=== PATIENT | female | born 1990 | race Caucasian/White ===

== ENCOUNTER 2018-02-27 09:58 | Day surgery (SDC) | payer OTHER ==
[~2018-02-27 09:58] MED LIST: Lactated Ringers 1,000 ML IV SCH; ceFAZolin 1 GM Vial IVPUSH ONE
[2018-02-27] MEDS ORDERED: Glycopyrrolate 0.2 MG/ML SDV IVPUSH ONE (09:59)
[2018-02-27] MEDS ORDERED: Propofol 200 MG/20 ML SDV IV ONE (09:59)
[2018-02-27] MEDS ORDERED: Ketorolac 30 MG/ML SDV IVPUSH ONE (09:59)
[2018-02-27] MEDS ORDERED: Midazolam 1 MG/ML 2 ML SDV IV ONE (09:59)
[2018-02-27] MEDS ORDERED: Succinylcholine 200 MG/10 ML MDV IV ONE (09:59)
[2018-02-27] MEDS ORDERED: HYDROmorphone 1 MG/ML Syringe IV ONE (09:59)
[2018-02-27] MEDS ORDERED: fentaNYL 100 MCG/2 ML SDV IV ONE ×2 (09:59)
[2018-02-27] MEDS ORDERED: Ondansetron 4 MG/2 ML SDV IV ONE (09:59)
[2018-02-27] MEDS ORDERED: Neostigmine Methylsulfate 10 MG/10 ML MDV IV ONE (09:59)
[2018-02-27] MEDS ORDERED: Rocuronium 50 MG/5 ML Vial IV ONE (09:59)
[2018-02-27] MEDS ORDERED: Morphine 2 MG/ML Syringe IVPUSH PRN (12:52)
[2018-02-27] MEDS ORDERED: Sodium Chloride 0.9% 10 ML Syringe FLUSH PRN (12:52)
--- NOTE | 2018-02-27 15:37 | OR ---
DATE OF OPERATION: 02/27/2018 PREOPERATIVE DIAGNOSIS: CHRONIC CHOLECYSTITIS AND CHOLELITHIASIS. POSTOPERATIVE DIAGNOSIS: CHRONIC CHOLECYSTITIS AND CHOLELITHIASIS. SURGEON: Gregorio Vegas MD PROCEDURE: LAPAROSCOPIC CHOLECYSTECTOMY. ANESTHESIA: General. ESTIMATED BLOOD LOSS: Minimum. SPECIMEN: Gallbladder and stones. FINDINGS: Multiple gallstones and normal appearing gallbladder. She does have a large 5 cm umbilical ventral hernia. No other abnormalities. There were no intra-abdominal adhesions. INDICATIONS: This 28-year-old female has symptomatic gallstone disease. DESCRIPTION OF PROCEDURE: After adequate preparation, an alternate access site was used in the right upper quadrant to place a trocar. The abdomen was then insufflated under direct vision. Other trocars were placed. The lower midline trocar had to be off to the side somewhat secondary to large what appears to be a recurrent umbilical hernia. There are no intra-abdominal contents in the hernia sac. The gallbladder was identified and elevated over the liver bed. The cystic triangle structure was dissected free, triply clipped and divided. The gallbladder was taken out the liver bed using cautery and blunt dissection. No spillage of bile or stones occurred. The gallbladder was taken out through the right mid clavicular port site. The abdomen was desufflated and the skin closed with Vicryl. BPB/MODL /[id number]
[2018-02-27] MEDS: Acetaminophen/oxyCODONE 325-5 MG Tab PO PRN ×2 (17:32→21:47)
[2018-02-27] MEDS: Ondansetron 4 MG/2 ML SDV IVPUSH PRN (21:45)
[2018-02-28] MEDS: Ondansetron 4 MG/2 ML SDV IVPUSH PRN (03:15)
--- NOTE | 2018-02-28 07:13 | PCM.SN ---
- Free Text/Narrative Note: VSS. One episode of N&V last PM. Pain controlled. Some PO liquid tolerated. Wounds clean and non tender. Discharge instructions given. Will discharge later today.
[2018-02-28 15:02] VITALS: BP 131/80
== END 2018-02-28 09:00 | disposition home or self-care (01) ==
LOC: CC.SDS 09:58 → CC.MS 16:49 → CC.SDS 02-28 09:00
PROVIDERS: ATTEND Surgery
DX: K80.10 Calculus of gallbladder with chronic cholecystitis without obstruction (principal); J01.90 Acute sinusitis, unspecified; H10.10 Acute atopic conjunctivitis, unspecified eye; Z79.899 Other long term (current) drug therapy
CPT/HCPCS: 36415; 84703; A9270-GY; J0330; J0690; J1170; J1885; J2250; J2405; J2704; J2710; J3010; J3490; J7120

== ENCOUNTER → 2018-09-29 | Day surgery (SDC) | payer OTHER ==
[~2018-09-29] MED LIST changes: +Glycopyrrolate 0.2 MG/ML SDV IVPUSH ONE; +Propofol 200 MG/20 ML SDV IV ONE; -ceFAZolin 1 GM Vial IVPUSH ONE
[2018-09-29 11:59] VITALS: BP 121/80
--- NOTE | 2018-09-29 13:36 | OR ---
DATE OF OPERATION: 09/29/2018 PREOPERATIVE DIAGNOSIS: DYSPHAGIA. POSTOPERATIVE DIAGNOSIS: 1. LARGE HIATAL HERNIA. 2. CHRONIC MILD ANTRAL GASTRITIS. SURGEON: Liam Chun MD PROCEDURE: EGD WITH BIOPSIES X3, JOCELINE. ANESTHESIA: MAC via GIN OPERATOR. COMPLICATIONS: None. SPECIMEN: 1. Antral biopsy x2. 2. Antral JOCELINE. 3. Biopsy x1, EG junction. FINDINGS: 1. Full-length EGD. 2. Mild and chronic-appearing antral gastritis focal without ulceration or erosion. 3. Large hiatal hernia with spontaneous GERD. 4. Minimal distal esophagitis. RECOMMENDATIONS: The patient given her significant symptoms should seek consultation for lap Jonas. INDICATIONS: The patient has been having ongoing issues with dysphagia, feeling like food is getting stuck, and a lot of substernal pressure. She was sent for EGD. DESCRIPTION OF PROCEDURE: The patient was prepped and draped, placed in the left lateral decubitus position. A lubricated Olympus gastroscope was inserted over a bit, advanced to cricopharyngeus area, and easily intubated in the esophagus. The esophageal lining was benign. The Z-line was crisp around 30 cm. There was a large hernia present with spontaneous reflux. There was 1 very small focal area of esophagitis right at the Z-line. We did do a biopsy of that. The scope was advanced into the stomach, through the pylorus, and into the second portion of the duodenum. This and the duodenal bulb were unremarkable. The scope was brought back into the stomach and retroflexed. The large hiatal hernia was easily visualized from below. No obvious ulcers, masses, polyps otherwise were seen with and without retroflexion of the scope. The mid portion of the antrum had a focal area of what appeared to be some mild gastritis chronic without ulceration or erosion. We did do 2 biopsies of that along with a CLOtest. Air was then suctioned from the stomach and the scope removed without complication. LOUIE/GRETTA /[id number]
== END ==
LOC: CC.SDS 10:14
PROVIDERS: ATTEND Family Medicine
DX: K20.9 Esophagitis, unspecified (principal); K29.50 Unspecified chronic gastritis without bleeding; K44.9 Diaphragmatic hernia without obstruction or gangrene; K21.9 Gastro-esophageal reflux disease without esophagitis; J01.90 Acute sinusitis, unspecified
CPT/HCPCS: 36415; 84703; 87081; J2704; J3490; J7120

== ENCOUNTER → 2019-06-21 | Day surgery (SDC) | payer OTHER, MEDICAID ==
[~2019-06-21] MED LIST changes: +Acetaminophen 325 MG Tab PO PRN; -Glycopyrrolate 0.2 MG/ML SDV IVPUSH ONE; +Sodium Chloride 0.9% 10 ML Syringe FLUSH PRN; +ceFAZolin 1 GM Vial IVPUSH ONE; +fentaNYL 100 MCG/2 ML SDV ONE
[2019-06-21] MEDS: Acetaminophen/HYDROcodone 325-5 MG Tab PO PRN (15:44)
--- NOTE | 2019-06-21 21:10 | OR ---
DATE OF OPERATION: 06/21/2019 PREOPERATIVE DIAGNOSIS: GASTROESOPHAGEAL REFLUX DISEASE AND LARGE HIATAL HERNIA. POSTOPERATIVE DIAGNOSIS: GASTROESOPHAGEAL REFLUX DISEASE AND LARGE HIATAL HERNIA. SURGEON: Gregorio Vegas MD PROCEDURE: LAPAROSCOPIC REPAIR OF HIATAL HERNIA. ANESTHESIA: General. ESTIMATED BLOOD LOSS: Minimum. SPECIMEN: None. FINDINGS: Moderate-sized hiatal hernia. She also has a recurrent umbilical hernia. INDICATIONS: This 29-year-old female has significant gastroesophageal reflux disease. She has both an upper GI that shows a hiatal hernia and EGD confirming a large hernia. She has typical epigastric symptoms and regurgitation. DESCRIPTION OF PROCEDURE: After adequate preparation, the Veress needle was placed in the left upper quadrant and the abdomen insufflated. A 5 mm trocar was then inserted into the abdomen and the abdomen fully insufflated. Four other trocars were placed under direct vision. The left lobe of the liver was elevated to reveal a moderate size hiatal hernia. The stomach, however, was easily reduced back down into the abdomen. The lesser omentum was incised and carried down to the line of the peritoneal reflection on the right crural base. This was then incised and the esophagus was dissected free up into the mediastinum. The peritoneal reflection on the left side of the crura was also then dissected free. This allowed the stomach to be easily be reduced down into the abdomen and without any tension at all, it did not rebound into the mediastinum. Two permanent sutures were used to close the base of the crura snugly around the esophagus. I did not use the dilator. She had an NG tube in place, however, and this seemed more than adequately loose. I did not perform a fundoplication on this patient since her body mass index is 36, and I think most of her symptoms were probably due to hernia anyway, and with this reduced with the lower esophageal sphincter now easily within the abdominal cavity, I think she will probably be mostly or at least improved with her reflux symptoms. Trocars were removed, the abdomen was desufflated, and the skin closed with 4-0 Monocryl. BPB/MODL /[id number]
--- NOTE | 2019-06-22 08:01 | PCM.SN ---
- Free Text/Narrative Note: Stable POD#1. Pain controlled with PO Percocet. PO liquids tolerated. Ambulated with difficulty. Wounds clean and dry. Will discharge later today. Diet restricted to PO liquids for this next week then advance as tolerated. No activity restrictions. FU with PCP 1 week if any questions otherwise cleared. Percocet (#20) given for pain control at home.
[2019-06-22] MEDS: Acetaminophen/HYDROcodone 325-5 MG Tab PO PRN (09:39)
[2019-06-22 13:14] VITALS: BP 133/86; PULSE 84
== END | disposition home or self-care (01) ==
LOC: CC.SDS 08:23
PROVIDERS: ATTEND Surgery
DX: K44.9 Diaphragmatic hernia without obstruction or gangrene (principal); K21.9 Gastro-esophageal reflux disease without esophagitis; K42.9 Umbilical hernia without obstruction or gangrene
CPT/HCPCS: 36415; 84703; A9270-GY; J0690; J2704; J3010; J7120

== ENCOUNTER 2021-10-22 01:55 | Emergency (ER) | payer MEDICAID ==
[2021-10-22] MEDS ORDERED: Sodium Chloride 0.9% 10 ML Syringe FLUSH PRN (02:01)
[2021-10-22] MEDS: methylPREDNISolone Sodium Succinate 125 MG/2 ML SDV IVPUSH ONE (02:10)
[2021-10-22] MEDS: diphenhydrAMINE 50 MG/ML SDV IVPUSH ONE (02:15)
[2021-10-22] MEDS: Famotidine 20 MG/2 ML SDV IVPUSH ONE (02:21)
[2021-10-22 02:33] VITALS: BP 131/86; PULSE 62
== END 2021-10-22 05:45 | disposition home or self-care (01) ==
LOC: CC.ED 01:55
DX: T78.40XA Allergy, unspecified, initial encounter (principal)
CPT/HCPCS: 96374; 96375; 99283; 99283-25; J1200; J2930; J3490

== ENCOUNTER → 2022-02-25 | Day surgery (SDC) | payer MEDICAID ==
[~2022-02-25] MED LIST changes: -Acetaminophen 325 MG Tab PO PRN; +Dexamethasone 4 MG/ML SDV ONE; +Glycopyrrolate 0.2 MG/ML 2 ML SDV ONE; +Ketamine 200 MG/20 ML MDV ONE; +Ketorolac 30 MG/ML SDV ONE; +Lidocaine 2% 5 ML SDV ONE; +Lidocaine 2% with EPINEPHrine 1:200,000 10 ML SDV INJECT ONE; +Midazolam 1 MG/ML 2 ML SDV ONE; +Neostigmine Methylsulfate 10 MG/10 ML MDV ONE; +Ondansetron 4 MG/2 ML SDV ONE; -Propofol 200 MG/20 ML SDV IV ONE; +Propofol 200 MG/20 ML SDV ONE; -Sodium Chloride 0.9% 10 ML Syringe FLUSH PRN; +Succinylcholine 200 MG/10 ML MDV ONE; -ceFAZolin 1 GM Vial IVPUSH ONE; -fentaNYL 100 MCG/2 ML SDV ONE; +fentaNYL 50 MCG/ML SDV ONE
[2022-02-25 14:15] VITALS: BP 117/78; PULSE 75
== END ==
LOC: CC.SDS 07:44
PROVIDERS: ATTEND Surgery
DX: R10.13 Epigastric pain (principal); E66.9 Obesity, unspecified; K21.9 Gastro-esophageal reflux disease without esophagitis; Z98.890 Other specified postprocedural states; Z68.31 Body mass index [BMI] 31.0-31.9, adult; Z20.822 Contact with and (suspected) exposure to COVID-19
CPT/HCPCS: 36415; 84703; J0330; J1100; J1885; J2250; J2405; J2704; J2710; J3010; J3490; J7120; U0002

== ENCOUNTER 2023-05-14 11:45 | Emergency (ER) | payer MEDICAID ==
[2023-05-14] MEDS: EPINEPHrine 1 MG/ML SDV IM ONE (11:45)
[2023-05-14] MEDS: Sodium Chloride 0.9% 1,000 ML IV ONE (11:55)
[2023-05-14] MEDS: diphenhydrAMINE 50 MG/ML SDV IVPUSH ONE (11:58)
[2023-05-14] MEDS: Famotidine 20 MG/2 ML SDV IVPUSH ONE (12:01)
[2023-05-14 12:14] LABS: BASOPHILS ABSOLUTE AUTO 0.07 10^3/uL (0.00-0.50); BASOPHILS PERCENT AUTO 0.7 % (0-1); EOSINOPHILS ABSOLUTE AUTO 0.61 10^3/uL (0.00-1.50); EOSINOPHILS PERCENT AUTO 6.1 % (0-6); HEMATOCRIT 36.7 % (37.0-47.0); HEMOGLOBIN 12.5 g/dL (12.0-16.0); IMMATURE GRAN ABSOLUTE AUTO 0.02 10^3/uL (0.00-0.49); IMMATURE GRAN PERCENT AUTO 0.2 % (0.0-4.9); LYMPHOCYTES PERCENT AUTO 35.2 % (24-44); MEAN CORPUSCULAR HEMOGLOBIN 28.1 pg (27.0-32.0); MEAN CORPUSCULAR HGB CONC 34.1 g/dL (32.0-36.0); MEAN CORPUSCULAR VOLUME 82.5 fL (83.0-97.0); MONOCYTES ABSOLUTE AUTO 0.87 10^3/uL (0.00-1.50); MONOCYTES PERCENT AUTO 8.8 % (0-10); NEUTROPHILS ABSOLUTE AUTO 4.86 x10^3/uL (1.80-8.00); PLATELET COUNT,PLT 334 10^3/uL (150-400); RED BLOOD CELL COUNT 4.45 x10^6/uL (4.00-5.50); WHITE BLOOD CELL COUNT,WBC 9.9 10^3/uL (4.0-11.0)
[2023-05-14 12:27] LABS: ALANINE AMINOTRANSFERASE,ALT 23 U/L (12-78); ALBUMIN 3.7 g/dL (3.4-5.0); ALKALINE PHOSPHATASE 85 U/L (46-116); ASPARTATE AMNIOTRANSFERASE,AST 22 U/L (15-37); BILIRUBIN TOTAL 0.4 mg/dL (0.0-1.0); BLOOD UREA NITROGEN,BUN 9 mg/dL (7-18); CARBON DIOXIDE,CO2 21 mmol/L (21-32); CHLORIDE,CL 104 mEq/L (98-106); CREATININE 0.8 mg/dL (0.6-1.0); GLUCOSE RANDOM 207 mg/dL (75-99); MAGNESIUM 1.9 mg/dL (1.8-2.4); POTASSIUM,K 3.4 mEq/L (3.5-5.0); SODIUM,NA 138 mEq/L (136-145)
[2023-05-14 12:28] LABS: C-REACTIVE PROTEIN < 0.30 mg/dL (<=0.30); ESTIMATED GFR 98 mL/min (>=60)
[2023-05-14] MEDS: methylPREDNISolone Sodium Succinate 125 MG/2 ML SDV IVPUSH STA (13:16)
[2023-05-14] MEDS: Take Home: predniSONE 20 MG, 2 Tab Pack PO ONE (14:16)
[2023-05-14 14:32] VITALS: BP 129/72; PULSE 93
== END 2023-05-14 14:20 | disposition home or self-care (01) ==
LOC: CC.ED 11:45
DX: T78.40XA Allergy, unspecified, initial encounter (principal)
CPT/HCPCS: 36415; 80053; 83735; 85025; 86140; 96372; 96374; 96375; 99283; 99284-25; J0171; J1200; J2930; J3490; J7030; J7512

== ENCOUNTER 2023-10-01 20:09 | Emergency (ER) | payer MEDICAID ==
[2023-10-01] MEDS: EPINEPHrine 1 MG/ML SDV IM ONE (20:08)
[2023-10-01] MEDS: methylPREDNISolone Sodium Succinate 125 MG/2 ML SDV IVPUSH STA (20:09)
[2023-10-01] MEDS: diphenhydrAMINE 50 MG/ML SDV IVPUSH ONE (20:09)
[2023-10-01] MEDS: Take Home: predniSONE 20 MG, 2 Tab Pack PO ONE (20:35)
[2023-10-01 21:22] VITALS: BP 150/89; PULSE 100
== END 2023-10-01 20:38 | disposition home or self-care (01) ==
LOC: CC.ED 20:38
DX: T78.40XA Allergy, unspecified, initial encounter (principal)
CPT/HCPCS: 96372; 96374; 96375; 99283; 99283-25; J0171; J1200; J2930; J7512